=== PATIENT | female | born 1950 | race Caucasian/White ===

== ENCOUNTER 2016-11-25 06:13 | Emergency (ER) | payer MEDICARE | END 2016-11-25 09:05 | disposition home or self-care (01) | LOC: D.ER 06:13 | DX: S00.81XA Abrasion of other part of head, initial encounter (principal); W01.0XXA Fall on same level from slipping, tripping and stumbling without subsequent striking against object, initial encounter; Y93.89 Activity, other specified; Y92.018 Other place in single-family (private) house as the place of occurrence of the external cause; S00.83XA Contusion of other part of head, initial encounter; S43.401A Unspecified sprain of right shoulder joint, initial encounter; S02.2XXA Fracture of nasal bones, initial encounter for closed fracture; S16.1XXA Strain of muscle, fascia and tendon at neck level, initial encounter; I10 Essential (primary) hypertension; F17.200 Nicotine dependence, unspecified, uncomplicated ==

== ENCOUNTER 2016-12-06 22:24 | Inpatient (IN) | payer MEDICARE ==
[~2016-12-06] VITALS: Ht 152.4 cm; Wt 57.7 kg
[2016-12-06 23:15] LABS: BASOPHILS 0.6 % (0-2); EOSINOPHILS 4.9 % (0-7); IMMATURE GRANULOCYTES 0.2 % (0-5); LYMPHOCYTES 35.7 % (15-50); MCHC 27.1 g/dL (31.0-37.0); MCV 60.7 fL (80.0-100.0); MEAN PLATELET VOLUME 8.8 fL (7.4-10.4); MONOCYTES 11.8 % (2-11); NEUTROPHILS 46.8 % (40-80); PLATELET COUNT 221 10x3/uL (130-400); RBC 3.46 10x6/uL (4.00-5.40); RDW 19.1 % (11.5-14.5); WBC 6.2 10x3/uL (4.8-10.8)
[2016-12-06 23:35] LABS: ALBUMIN 3.6 g/dL (3.4-5.0); ALKALINE PHOSPHATASE 55 U/L (46-116); ALT (SGPT) 38 U/L (10-68); CALC OSMOLALITY 279 mosm/kg (275-300); CALCIUM 8.5 mg/dL (8.5-10.1); CARBON DIOXIDE 25.5 mmol/L (21.0-32.0); CHLORIDE - SERUM 104 mmol/L (98-107); CREATININE - SERUM 0.8 mg/dL (0.6-1.3); GLUCOSE 106 mg/dL (74-106); POTASSIUM - SERUM 3.3 mmol/L (3.5-5.1); PROTEIN - SERUM 7.9 g/dL (6.4-8.2); SODIUM 140 mmol/L (136-145); UREA NITROGEN 14 mg/dL (7-18); eGFR NON AFRICAN AMERICAN 76 mL/min (90-120)
[2016-12-06 23:37] LABS: HEMOGLOBIN 5.7 g/dL (12-16); MCH 16.5 pg (26.0-34.0)
[2016-12-06 23:47] LABS: CKMB 3.6 U/L (0.0-3.6); CREATINE KINASE 138 UL (21-215); TROPONIN-I < 0.017 ng/mL (0.000-0.060)
[2016-12-07 01:51] LABS: UDS - AMPHET POSITIVE QUAL (NEGATIVE); UDS - BARB NEGATIVE QUAL (NEGATIVE); UDS - BENZO NEGATIVE QUAL (NEGATIVE); UDS - COCAINE NEGATIVE QUAL (NEGATIVE); UDS - METH NEGATIVE QUAL (NEGATIVE); UDS - OPIATE NEGATIVE QUAL (NEGATIVE); UDS - PCP NEGATIVE QUAL (NEGATIVE); UDS - THC NEGATIVE QUAL (NEGATIVE)
[2016-12-07 01:56] LABS: APPEARANCE CLEAR (CLEAR); BILIRUBIN NEGATIVE (NEGATIVE); COLOR YELLOW (YELLOW); GLUCOSE NEGATIVE (NEGATIVE); KETONE NEGATIVE (NEGATIVE); LEUKOCYTE ESTERASE 1+ (NEGATIVE); NITRITE POSITIVE (NEGATIVE); PROTEIN NEGATIVE (NEGATIVE); SPECIFIC GRAVITY 1.005 (1.005-1.020); UROBILINOGEN NORMAL (NORMAL)
[2016-12-07 01:57] LABS: BACTERIA MANY /hpf (NONE SEEN); EPITHELIAL CELLS 0-5 /hpf (0-5); RED CELLS - URINE 0-5 /hpf (0-5)
[2016-12-07 02:21] LABS: % SATURATION 2 % (15-55); IRON 14 ug/dl (35-150); TOTAL IRON BIND CAPACITY 604 ug/dl (260-445)
[2016-12-07 02:22] LABS: UNSAT IRON BIND CAPACITY 590 ug/dl (150-375)
--- NOTE | 2016-12-07 03:45 | NUR ---
PATIENT TO ROOM AT THIS TIME. BLOOD INFUSING. VS STABLE. IV X 2 INTACT. COMPLAINS OF BACK PAIN AT THIS TIME. ASKED PATIENT IF TOOK MEDS FOR PAIN AT HOME. STATED NO. EXPLAINED NO MEDS AVAILABLE AT THIS TIME UNTIL PHYSICIAN CAME IN. VERBALIZED UNDERSTANDING. ASSESSMENT COMPLETE. SANDWICH TRAY GIVEN. WILL CONTINUE TO MONITOR. CALL LIGHT WITHIN REACH.
[2016-12-07 03:57] VITALS: BP 177/86; Ht 152.4 cm; Wt 57.7 kg
--- NOTE | 2016-12-07 05:15 | NUR ---
FIRST UNIT OF BLOOD COMPLETE, VS STABLE. IV INTACT. FRIEND AT BEDSIDE. PATIENT STATED STILL HAS PAIN TO BACK BUT IS WAITING FOR PHYSICIAN. NO OTHER COMPLAINTS. CALL LIGHT WITHIN REACH.
--- NOTE | 2016-12-07 05:20 | NUR ---
SECOND UNIT OF BLOOD STARTED. VS STABLE. NO COMPLAINTS AT THIS TIME. IV INTACT. CALL LIGHT WITHIN REACH.
--- NOTE | 2016-12-07 06:47 | NUR ---
PATIENT IN BED WITH IV INTACT. STILL COMPLAINING OF BACK PAIN. REPOSITIONED BED. PATIENT STATED A LITTLE BETTER. NO OTHER COMPLAINTS AT THIS TIME. VS STABLE. BLOOD INFUSING WITH NO PROBLEMS. CALL LIGHT WITHIN REACH.
--- NOTE | 2016-12-07 07:45 | NUR ---
PT ASSESSMENT COMPLETE AWAKE AND ALERT BLOOD TRANSFUSING PT COMPLAINS OF PAIN TO NECK AND SHOULDERS BILATERALLY CALL PLACED TO WILLOW ANALYST MD. AWAITING RETURN CALL. MAKES ALL NEEDS KNOWN. CALL LIGHT IN REACH.
--- NOTE | 2016-12-07 08:09 | NUR ---
BLOOD COMPLETED. STILL COMPLAINS OF BACK/NECK PAIN. NO MEDS ORDERED. CALL PLACED TO INFORMATION ASSURANCE MANAGER/DR LANDERS FOR MEDS. CALL LIGHT IN REACH. PT VOICED UNDERSTANDING
--- NOTE | 2016-12-07 08:50 | NUR ---
NEW ORDER FOR NORCO 5/325 PO Q6HR WILL TREAT PAIN PER ORDER.
[2016-12-07 09:21] LABS: BASOPHILS 0.4 % (0-2); EOSINOPHILS 5.1 % (0-7); LYMPHOCYTES 23.6 % (15-50); MCHC 31.3 g/dL (31.0-37.0); MEAN PLATELET VOLUME 8.7 fL (7.4-10.4); MONOCYTES 13.7 % (2-11); NEUTROPHILS 57.2 % (40-80); RBC 3.96 10x6/uL (4.00-5.40); RDW 25.2 % (11.5-14.5); WBC 4.9 10x3/uL (4.8-10.8)
[2016-12-07 09:28] LABS: HEMOGLOBIN 8.3 g/dL (12-16)
[2016-12-07 09:29] LABS: HEMATOCRIT 26.5 % (36.0-48.0); MCV 66.9 fL (80.0-100.0); PLATELET COUNT 151 10x3/uL (130-400)
[2016-12-07 09:31] LABS: CALC OSMOLALITY 274 mosm/kg (275-300); CALCIUM 8.6 mg/dL (8.5-10.1); CARBON DIOXIDE 25.8 mmol/L (21.0-32.0); CHLORIDE - SERUM 104 mmol/L (98-107); CREATININE - SERUM 0.7 mg/dL (0.6-1.3); GLUCOSE 104 mg/dL (74-106); SODIUM 138 mmol/L (136-145); UREA NITROGEN 11 mg/dL (7-18); eGFR NON AFRICAN AMERICAN 89 mL/min (90-120)
[2016-12-07 09:32] LABS: POTASSIUM - SERUM 3.8 mmol/L (3.5-5.1)
--- NOTE | 2016-12-07 11:00 | NUR ---
SITTING UP IN BED WITH RESPIRATIONS EVEN AND NON LABORED AT THIS TIME. DENIES NEEDS AT THIS TIME. CALL LIGHT IN REACH, WILL CONTINUE WITH PLAN OF CARE.
--- NOTE | 2016-12-07 11:28 | NUR ---
PATIENT ALERT IN MID DASILVA POSITION. NO SIGNS OF DISTRESS NOTED. RENA, NURSE AID AT BEDSIDE. SIDE RAILS UP X2. BED IN LOW POSITION. CALL LIGHT IN REACH.
[2016-12-07 12:17] VITALS: BP 156/79
--- NOTE | 2016-12-07 12:31 | NUR ---
Patient Name: KIMBERLEY COSTA Admission Status: ER Accout number: [id number] Admission Date: 12-07-2016 : 1950 Admission Diagnosis: Attending: NELSON Current LOS: 1 Anticipated DC Date: 12-09-2016 Planned Disposition: Home Primary Insurance: MEDICARE A & B Discharge Planning Comments: CM MET WITH PATIENT REGARDING D/C NEEDS AND PLANS. PATIENT STATED SHE LIVES WITH HER ROOMMATE (ARSEN) AND SHE WILL DRIVE HER HOME AT DISCHARGE. PATIENT STATED THERE ARE NO STEPS OR STAIRS AT HER HOME. PATIENT STATED SHE IS INDEPENDENT WITH HER CARE AND HAS NO DME AT HOME. PATIENTS PCP IS DR. PINTO AND PHARMACY IS [facility] [address] [facility]. PATIENT REFUSED HOME HEALTH STATING SHE DOES NOT NEED IT. CM WILL CONTINUE TO FOLLOW PATIENT WITH D/C NEEDS AND PLANS. PCP DR. BLAIR [facility] [address]- [phone] ARSEN JOY (FRIEND) [phone] Automobile Body Repairer: Katarzyna Castro Is the patient Alert and Oriented? Yes 0 * How many steps to enter\exit or inside your home? 0 0 * PCP DR. PINTO 0 * Pharmacy [facility] [address] 0 * Preadmission Environment Home with Family 0 * ADLs Independent 0 * List name and contact numbers for known caregivers / representatives who currently or will assist patient after discharge: ARSEN ABLES (ROOMMATE) [phone] * Community resources currently utilized None 0 * Additional services required to return to the preadmission environment? Yes 0 * Can the patient safely return to the preadmission environment? Yes 0 * Has this patient been hospitalized within the prior 30 days at any hospital? No 0 Grand Total: 0
--- NOTE | 2016-12-07 14:41 | NUR ---
PT INFUSING LEVAQUIN AT THIS TIME PER ORDER PER PUMP TO RIGHT HAND PIV
--- NOTE | 2016-12-07 18:32 | NUR ---
NO ACUTE DISTRESS NOTED PT HAS COMPLAINED OF PAIN TODAY IN HER NECK AND SHOULDERS FROM A PREVIOUS FALL AT HOME SEVERAL MONTHS AGO. TREATED PER ORDER WITH NORCO DIRECTED.
[2016-12-07 20:00] VITALS: BP 162/71
--- NOTE | 2016-12-07 21:55 | NUR ---
REC'D LYING IN BED. ALERT AND ORIENTED X4. NO DISTRESS NOTED. REPORTED PAIN 01/03. WILL ADMIN MEDS PRESCRIBED. DENIED FURTHER NEEDS AT THIS TIME. INSTRUCTED TO CALL IF NEEDED ANYTHING. VERBALIZED UNDERSTANDING. BED LOW, LOCKED, CALLL LIGHT IN REACH. WILL CONT TO MARLON. BOYFRIEND AT BEDSIDE.
[2016-12-08] VITALS: BP 166/88
--- NOTE | 2016-12-08 02:00 | NUR ---
PATIENT RESTING WITH EYES CLOSED AND NO VISIBLE SIGNS OF DISTRESS. BED IN LOWEST POSITION AND CALL LIGHT WITHIN REACH.
[2016-12-08 04:00] VITALS: BP 136/68
[2016-12-08 06:13] LABS: BASOPHILS 0.4 % (0-2); EOSINOPHILS 5.2 % (0-7); HEMATOCRIT 27.4 % (36.0-48.0); HEMOGLOBIN 8.3 g/dL (12-16); IMMATURE GRANULOCYTES 0.2 % (0-5); LYMPHOCYTES 20.3 % (15-50); MCH 20.2 pg (26.0-34.0); MCHC 30.3 g/dL (31.0-37.0); MCV 66.7 fL (80.0-100.0); MEAN PLATELET VOLUME 8.7 fL (7.4-10.4); MONOCYTES 10.7 % (2-11); NEUTROPHILS 63.2 % (40-80); PLATELET COUNT 148 10x3/uL (130-400); RBC 4.11 10x6/uL (4.00-5.40); RDW 24.7 % (11.5-14.5)
[2016-12-08 06:48] LABS: ALBUMIN 3.3 g/dL (3.4-5.0); ALKALINE PHOSPHATASE 50 U/L (46-116); ALT (SGPT) 31 U/L (10-68); CALC OSMOLALITY 276 mosm/kg (275-300); CALCIUM 8.8 mg/dL (8.5-10.1); CARBON DIOXIDE 25.5 mmol/L (21.0-32.0); CHLORIDE - SERUM 103 mmol/L (98-107); CREATININE - SERUM 0.7 mg/dL (0.6-1.3); GLUCOSE 123 mg/dL (74-106); POTASSIUM - SERUM 3.8 mmol/L (3.5-5.1); PROTEIN - SERUM 7.6 g/dL (6.4-8.2); SODIUM 138 mmol/L (136-145); UREA NITROGEN 12 mg/dL (7-18); eGFR NON AFRICAN AMERICAN 89 mL/min (90-120)
--- NOTE | 2016-12-08 07:50 | NUR ---
SLEEPING, NO DISTRESS NOTED, BREATHING EVEN UNLABORED, CALL LIGHT IN REACH, BED LOWEST POSITION, CALL LIGHT IN REACH, WILL CONTINUE TO MONITOR
--- NOTE | 2016-12-08 08:00 | NUR ---
SLEEPING WITH FAMILY MEMBER IN BED.PT WITHOUT DISTRESS.CALL LIGHT IN REACH
[2016-12-08 08:19] LABS: FOLATE (FOLIC ACID) - SERUM >20.0 ng/mL (>3.0)
[2016-12-08 08:54] VITALS: BP 149/80
[2016-12-08 11:55] VITALS: BP 148/83
[2016-12-08 12:15] LABS: TRANSFERRIN 539 mg/dL (200-370)
[2016-12-08 15:48] VITALS: BP 138/73
--- NOTE | 2016-12-08 19:35 | NUR ---
REPORT RECEIVED FROM CAT SCAN TECH NURSE. CALL LIGHT IN REACH.
[2016-12-08 20:00] VITALS: BP 145/88
--- NOTE | 2016-12-08 20:30 | NUR ---
EXPLAINED AND OFFERED SCDs BUT PATIENT REFUSED AT THIS TIME.
[2016-12-08] MEDS ORDERED: NEURONTIN600 MG PO (22:10)
[2016-12-08] MEDS ORDERED: LISINOPRIL10 MG PO (22:10)
[2016-12-08] MEDS ORDERED: OMEPRAZOLE20 M1 PO (22:11)
--- NOTE | 2016-12-08 22:25 | NUR ---
ASSESSMENT COMPLETED. NORCO PO WITH PM MEDS ADMINISTERED. PASSWORD AND PHARMACY OBTAINED AND PLACED IN COMPUTER. MED REC REVIEWED. CALL LIGHT IN REACH. WILL CONTINUE WITH PLAN OF CARE.
--- NOTE | 2016-12-08 22:28 | NUR ---
EXPLAINED AND OFFERED SCDs BUT PATIENT REFUSED.
[2016-12-09] VITALS: BP 169/81
--- NOTE | 2016-12-09 00:03 | NUR ---
NO NEEDS VOICED AT THIS TIME. CALL LIGHT IN REACH.
--- NOTE | 2016-12-09 02:30 | NUR ---
RESTING WITH EYES CLOSED. RESP EVEN AND UNLABORED. CALL LIGHT IN REACH.
[2016-12-09 04:00] VITALS: BP 151/83
--- NOTE | 2016-12-09 04:00 | NUR ---
PT IN BED WITH NO DISTRESS. RESPIRATIONS EVEN AND UNLABORED. SIDE RAILS X 2. BED LOW. CALL LIGHT IN REACH.
--- NOTE | 2016-12-09 04:16 | NUR ---
CELY AND JAVY PO. CALL LIGHT IN REACH.
[2016-12-09 05:32] LABS: BASOPHILS 0.7 % (0-2); EOSINOPHILS 6.2 % (0-7); HEMATOCRIT 29.5 % (36.0-48.0); HEMOGLOBIN 8.8 g/dL (12-16); IMMATURE GRANULOCYTES 0.4 % (0-5); LYMPHOCYTES 24.6 % (15-50); MCH 20.1 pg (26.0-34.0); MCHC 29.8 g/dL (31.0-37.0); MCV 67.4 fL (80.0-100.0); MONOCYTES 12.5 % (2-11); NEUTROPHILS 55.6 % (40-80); PLATELET COUNT 164 10x3/uL (130-400); RBC 4.38 10x6/uL (4.00-5.40); WBC 5.6 10x3/uL (4.8-10.8)
--- NOTE | 2016-12-09 06:17 | NUR ---
NO CHANGES IN INITIAL ASSESSMENT. STILL REFUSES SCDs. CALL LIGHT IN REACH. WILL CONTINUE WITH PLAN OF CARE.
[2016-12-09 06:26] LABS: ALBUMIN 3.3 g/dL (3.4-5.0); ALKALINE PHOSPHATASE 50 U/L (46-116); ALT (SGPT) 30 U/L (10-68); BILIRUBIN - TOTAL 0.27 mg/dL (0.2-1.3); CALC OSMOLALITY 276 mosm/kg (275-300); CALCIUM 8.8 mg/dL (8.5-10.1); CARBON DIOXIDE 28.7 mmol/L (21.0-32.0); CHLORIDE - SERUM 104 mmol/L (98-107); CREATININE - SERUM 0.6 mg/dL (0.6-1.3); GLUCOSE 99 mg/dL (74-106); POTASSIUM - SERUM 4.3 mmol/L (3.5-5.1); PROTEIN - SERUM 7.7 g/dL (6.4-8.2); SODIUM 138 mmol/L (136-145); UREA NITROGEN 14 mg/dL (7-18); eGFR NON AFRICAN AMERICAN > 90 mL/min (90-120)
--- NOTE | 2016-12-09 07:35 | NUR ---
SLEEPING, NO DISTRESS NOTED, CALL LIGHT IN REACH, BREATHING EVEN UNLABORED, BED LOWEST POSITION, WILL CONTINUE TO MONITOR
[2016-12-09 08:53] VITALS: BP 166/82
[2016-12-09 09:18] LABS: ERYTHROPOIETIN 45.8 mIU/mL (2.6-18.5)
[2016-12-09 10:19] LABS: HEPATITIS C ANTIBODY >11.0 (0.0-0.9)
[2016-12-09] MEDS ORDERED: LEVAQUIN750 MG PO (10:26)
[2016-12-09] MEDS ORDERED: FLORAJEN3 CAPS460 MG PO (10:27)
[2016-12-09] MEDS ORDERED: FERROUS SULFAT325 MG PO (10:30)
[2016-12-09 12:16] LABS: HELICOBACTER PYLORI IGM AB 11.4 units (0.0-8.9)
[2016-12-09] MEDS ORDERED: MACROBID100 MG PO (13:13)
--- NOTE | 2016-12-09 18:59 | NUR ---
DISCHARGE INSTRUCTION AND PAPERS GIVEN, IV ERMOVED TIP INTACT, QUESTIONS ANSWERED, DISCHRGED PER WC WITH BELONGINGS
--- NOTE | 2016-12-10 11:18 | NUR ---
LATE ENTRY: PATIENT D/C HOME YESTERDAY 12/09/16 / NO NEEDS/ REF. HOME HEALTH/DRIVEN HOME BY FRIEND.
== END 2016-12-09 19:00 | disposition home or self-care (01) | DRG 812 ==
LOC: D.ER 22:24 → D.MS 12-07 02:04
PROVIDERS: Emergency Medicine; Family Medicine; Internal Medicine Hematology & Oncology; ADMIT Family Medicine
DX: D50.9 Iron deficiency anemia, unspecified (principal); N39.0 Urinary tract infection, site not specified; I10 Essential (primary) hypertension; J45.909 Unspecified asthma, uncomplicated; R51 Headache; J32.9 Chronic sinusitis, unspecified; K75.9 Inflammatory liver disease, unspecified; F15.10 Other stimulant abuse, uncomplicated

== ENCOUNTER → 2017-07-19 14:38 | Outpatient (CLI) | payer MEDICARE ==
[2016-12-07 03:57] VITALS: BMI 24.8
[~2017-07-19 14:38] MED LIST: FERROUS SULFAT325 MG PO; FLORAJEN3 CAPS460 MG PO; LEVAQUIN750 MG PO; LISINOPRIL10 MG PO; MACROBID100 MG PO; NEURONTIN600 MG PO; OMEPRAZOLE20 M1 PO
== END | disposition home or self-care (01) ==
LOC: D.CT 07-12 15:30
DX: M54.2 Cervicalgia (principal)

== ENCOUNTER → 2017-12-06 15:14 | Outpatient (CLI) | payer MEDICARE ==
[2016-12-07 03:57] VITALS: BMI 24.8
[~2017-12-06 15:14] MED LIST changes: +IMITREX100 MG PO; +NORCO 10-325 TA1 TAB PO
== END | disposition home or self-care (01) ==
LOC: D.MRI 15:14
DX: M54.12 Radiculopathy, cervical region (principal)

== ENCOUNTER 2018-01-13 07:00 | Day surgery (SDC) | payer MEDICARE ==
[2018-01-11 12:01] LABS: HEMOGLOBIN 14.1 g/dL (12-16); MCH 30.5 pg (26.0-34.0); MCHC 34.4 g/dL (31.0-37.0); MCV 88.7 fL (80.0-100.0); MEAN PLATELET VOLUME 10.4 fL (7.4-10.4); RBC 4.62 10x6/uL (4.00-5.40); RDW 13.7 % (11.5-14.5); WBC 2.9 10x3/uL (4.8-10.8)
[~2018-01-13] VITALS: Ht 152.4 cm; Wt 59.4 kg
[2018-01-13] VITALS (12 sets, daily range): BP systolic 150–179; BP diastolic 89–105; BMI 25.8
--- NOTE | ~2018-01-13 | OP ---
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 Bilateral C5 radiculopathy. 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 Bilateral C5 radiculopathy. PROCEDURES: Anterior cervical discectomy and fusion at C4-C5 with removal of osteophytes. Anterior cervical discectomy and fusion with Zavation anterior cervical plate, separate PEEK interbody cage, Ora bone stem cell allograft, and removal of C5-C6 anterior cervical plate. SURGEON: Maria Teresa Joya MD DESCRIPTION AND TECHNIQUE: After induction of general endotracheal anesthesia, the patient was positioned supine on the operating table. The neck was prepped and draped in usual sterile fashion. Fluoroscopic x-ray and freer localized the C4-C5 interspace and the previous anterior cervical plate. A transverse skin incision was carried out from the midline to the sternocleidomastoid muscle. The platysma was divided with Bovie cautery. Using blunt and sharp dissection with Metzenbaum scissors, I proceeded in avascular plane medial to the carotid sheath. The previous anterior cervical plate was identified. This was dissected with Bovie cautery. The screws were removed from the plate and the plate was removed and sent to pathology for gross only. Eden distracting pins were placed by C4 and C5. Disc space was incised under distraction. Disc material was removed with pituitary rongeurs and curettes under microscopic illumination. Osteophytes were drilled away posteriorly on both sides. The posterior longitudinal ligament was removed with Cloward rongeurs. A PEEK interbody cage was placed in disc space under distraction, 7 mm in height. Prior to this, it was filled with Ora bone allograft. A separate anterior cervical plate and screws from [facility] spine was used to span the C4-C5 interspace. The 60-mm screws were advanced through the holes and plate. Locking cams were tightened down over the screw heads. Meticulous hemostasis was maintained throughout the wound. The wound was irrigated with copious amounts of Ancef irrigant solution. The platysma was closed with 3-0 Vicryl suture, the subdermal layer was closed with 3-0 Vicryl suture, and the skin was reapproximated with Steri-Strips and benzoin. A sterile dressing was applied to the wound. The patient was awakened in good condition and taken to recovery. All counts were reported as correct. Estimated blood loss was minimal. TRANSINT:[id number] Voice Confirmation ID: [id number] DOCUMENT ID: [id number] MARIA TERESA JOYA MD at 1346 CC: [id number] DICTATION DATE: 01/13/18 1219 QA SOFTWARE TESTER: 01/13/18 1235 [place] [id number] [place] [id number]
[2018-01-14] VITALS (9 sets, daily range): BP systolic 145–187; BP diastolic 72–101; Ht 152.4 cm; Wt 59.4 kg
[2018-01-14] MEDS ORDERED: NORCO 10-325 TA1 TAB PO (08:30)
== END 2018-01-14 12:00 | disposition home or self-care (01) ==
LOC: D.OPS 07:00 → D.PAN 09:15 → D.OPS 09:15 → D.ICU 13:03 → D.OPS 01-14 12:00
PROVIDERS: Anesthesiology
DX: M50.121 Cervical disc disorder at C4-C5 level with radiculopathy (principal); M25.78 Osteophyte, vertebrae; Z01.812 Encounter for preprocedural laboratory examination

== ENCOUNTER 2018-12-14 19:00 | Outpatient (CLI) | payer MEDICARE ==
[2018-01-14 09:20] VITALS: BMI 25.5
== END 2018-12-14 23:59 | disposition home or self-care (01) ==
LOC: D.MAMMO 19:00
PROVIDERS: ATTEND Clinical Nurse Specialist Family Health
DX: Z12.31 Encounter for screening mammogram for malignant neoplasm of breast (principal)